=== PATIENT | male | born 1975 | race African-American/Black ===

== ENCOUNTER 2017-02-07 06:43 | Emergency (ER) | payer OTHER ==
--- NOTE | ~2017-02-07 | CT2 ---
[facility] A Service of [facility] [place] RADIOLOGY TEXT RESULTS PATIENT: EL STROUD LOCATION: [facility] : 75 UNIT #: [id number] AGE: [address]: Shari Gaston MD SEX: M ORDER DR: [id number] [facility] [address] [place], [place] [address] [id number] MR#: [id number] Acc #: [id number] NAME: EL STROUD : 1975 SEX: M STUDY DATE/TIME: 02/07/2017 10:09 UNIT: [facility] ROOM: STUDY DESCRIPTION: CT Abd and Pelv W Cont Attending Physician: Shari Gaston M.D. Ordering Physician: Shari Gaston M.D. Primary Care Physician: Primary Care Physician No MEDICAL IMAGING REPORT This report is preliminary unless electronic signature is present EXAM CT of the abdomen and pelvis with contrast INDICATIONS Abdominal pain for 7 hours. Patient has a history of acute pancreatitis and also complains of vomiting. TECHNIQUE Axial CT images were obtained from the dome of the diaphragm through the symphysis pubis following the administration of intravenous contrast material. This CT exam was performed with one or more of the following radiation dose reduction techniques: Automatic exposure control, adjustment of mA and/or kV according to patient size, and iterative reconstruction. FINDINGS Images through the lung bases demonstrate some mild bibasilar atelectasis. Liver and gallbladder appear unremarkable. Spleen and proximal small bowel are within normal limits. Adrenal glands and kidneys also appear normal. There is a small hiatal hernia. Gallbladder is normal in appearance. I do not see any evidence of pancreatitis on these images. No free fluid or adenopathy is seen within the abdomen. Prostate gland and urinary bladder appear normal. The appendix is visualized and is within normal limits. No free fluid or adenopathy is seen within the pelvis. Patient appears to be status post right inguinal hernia repair. There are some shotty inguinal nodes. There is an apparent collection which is seen tracking posterior to the sacrum and coccyx measuring about 9.6 cm in length. Clinical significance is uncertain. I wonder if this could be related to a prior pilonidal cyst. It was not present on the exam from February 2014. I suspect it may reflect a pilonidal cyst. Correlation with [facility] A Service of [facility] RADIOLOGY TEXT RESULTS PATIENT: EL STROUD LOCATION: [facility] : 75 UNIT #: [id number] AGE: [address]: MarilinDecember SEX: M ORDER DR: physical exam findings is suggested. IMPRESSION 1. No definite acute intraabdominal or intrapelvic process is seen to account for the patient's symptomatology. Solid organs appear unremarkable, GI tract appears within normal limits, including the appendix. In particular, I do not see any convincing evidence of pancreatitis. 2. This patient does have an apparent collection which is tracking posterior to the sacrum and coccyx. I question if perhaps this reflects a pilonidal cyst. It was not really present on the prior examination and correlation with physical exam findings in this area is recommended. Dictated by... Talisha Hernandez M.D. THIS IS AN ELECTRONICALLY VERIFIED REPORT Talisha Hernandez M.D. at 02/09/2017 1:21 PM AFF/psc TD: 02/07/2017 17:22 JOB #: [id number] MEDICAL IMAGING REPORT Page 1 of 1 COPY
[~2017-02-07 06:43] MED LIST: ADVIL200 M3 PO; FAMOTIDINE PO; FAMOTIDINE20 MG PO; FLEXERIL10 M1 PO; LORTAB 10-5001 EACH PO; LORTAB 5/500 TA1 TA1 PO; MEDROL4 MG/DOSE- PO; OMEPRAZOLE40 MG PO; PERCOCET5/325 PO; PHENERGAN PO; PHENERGAN SUPP25 MG PR; PHENERGAN12.5 MG/SU RC; PHENERGAN25 M1 PO; PHENERGAN25 MG PO; PROTONIX PO; ZOFRAN ODT4 MG PO
[2017-02-07 07:33] LABS: BASOPHIL# 0.1 X10e3 (0-0.3); BASOPHIL% 0.6 % (0-2.5); EOSINOPHIL# 0.1 X10e3 (0-0.7); EOSINOPHIL% 0.4 % (0.0-7.0); HEMOGLOBIN 13.5 gm/dL (13.0-16.0); LYMPHOCYTE# 2.2 X10e3 (1.0-3.5); LYMPHOCYTE% 16.8 % (17.0-45.0); MEAN CELL VOLUME 92.9 FL (83-96); MEAN CORPUSCULAR HEMOGLOBIN 30.5 PG (28-34); MEAN CORPUSCULAR HGB CONC 32.9 g/dL (30-36); MEAN PLATELET VOLUME 9.1 FL (6.5-11.5); MONOCYTE# 0.9 X10e3 (0-1.0); MONOCYTE% 7.1 % (3.0-12.0); NEUTROPHIL# 9.7 X10e3 (1.5-7.1); NEUTROPHIL% 75.1 % (40-75); PLATELET COUNT 221 X10e3 (140-420); RED BLOOD COUNT 4.41 X10e (3.90-5.60); RED CELL DISTRIBUTION WIDTH 14.6 % (11.0-15.5); WHITE BLOOD COUNT 12.9 X10e3 (4.0-10.5)
[2017-02-07 07:36] LABS: DIFF IND NO
[2017-02-07 08:08] LABS: ALBUMIN SERUM 4.2 g/dL (3.5-5.0); ALKALINE PHOSPHATASE 93 U/L (32-92); ALT (SGPT) 29 U/L (10-40); AMYLASE 49 U/L (0-46); AST (SGOT) 26 U/L (10-42); BILIRUBIN, DIRECT 0.1 mg/dL (0.0-0.2); BILIRUBIN,INDIRECT 0.5 mg/dL (0.0-0.9); BILIRUBIN,TOTAL 0.6 mg/dL (0.2-2.0); BLOOD UREA NITROGEN 18 mg/dL (9-23); BUN/CREATININE RATIO 16.36; CALCIUM SERUM 8.9 mg/dL (8.4-10.2); CARBON DIOXIDE 21 mmol/L (22-31); CHLORIDE 102 mmol/L (100-111); CREATININE SERUM 1.1 mg/dL (0.6-1.4); GLOM FILT RATE Estimated 96.2 mL/min (>60); GLUCOSE FASTING 181 mg/dL (70-110); LIPASE 52 U/L (22-51); SODIUM 136 mmol/L (135-145)
[2017-02-07 08:23] LABS: ALCOHOL BLOOD <5 mg/dL (0)
[2017-02-07 09:38] LABS: URINE SOURCE CLEAN CATCH
[2017-02-07 09:50] LABS: URINE APPEARANCE CLEAR; URINE BILIRUBIN NEG (NEG); URINE BLOOD NEG (NEG); URINE COLOR YELLOW; URINE GLUCOSE NEG (NEG); URINE KETONE 3+ (NEG); URINE LEUKOCYTE ESTERASE NEG (NEG); URINE NITRATE NEG (NEG); URINE PH 8.5 (5-8); URINE PROTEIN 1+ (NEG); URINE SPECIFIC GRAVITY 1.032 (1.003-1.035)
[2017-02-07 09:52] LABS: URBCS1 AUWI 0-2 /[HPF] (0-2); URINE BACTERIA AUWI NEG (NEGATIVE); URINE SQUAMOUS EPITHELIAL CELL FEW /[HPF]; UWBCS1 AUWI 0-2 (0-5)
[2017-02-07 10:02] LABS: AMPHETAMINE NEG (NEG); BARBITURATES NEG (NEG); BENZODIAZEPINES NEG (NEG); COCAINE NEG (NEG); MARIJUANA POS (NEG); OPIATES POS (NEG); TRICYCLIC ANTIDEPRESSANTS NEG (NEG); U METHADONE NEG (NEG)
[2017-02-07 10:08] LABS: CULTURE INDICATED? NO; URINE AMORPHOUS SEDIMENT AMORP PHOSPHATES; URINE MUCUS PRESENT
== END 2017-02-07 12:20 | disposition home or self-care (01) ==
LOC: CED 06:43
PROVIDERS: Student in an Organized Health Care Education/Training Program
DX: K85.90 Acute pancreatitis without necrosis or infection, unspecified (principal); K86.1 Other chronic pancreatitis; F12.10 Cannabis abuse, uncomplicated
CPT/HCPCS: 36415; 74177; 80048; 80076; 80307; 81003; 82150; 83690; 85025; 96361; 96374; 96375; 99284; C9113; G0480; J2270; J2405; Q9967

== ENCOUNTER 2017-05-13 10:02 | Emergency (ER) | payer OTHER ==
[2017-05-13 11:18] LABS: BASOPHIL# 0.1 X10e3 (0-0.3); BASOPHIL% 0.6 % (0-2.5); EOSINOPHIL% 0.4 % (0.0-7.0); HEMATOCRIT 42.4 % (38.0-50.0); HEMOGLOBIN 14.5 gm/dL (13.0-16.0); LYMPHOCYTE# 2.9 X10e3 (1.0-3.5); LYMPHOCYTE% 28.5 % (17.0-45.0); MEAN CELL VOLUME 91.1 FL (83-96); MEAN CORPUSCULAR HEMOGLOBIN 31.3 PG (28-34); MEAN CORPUSCULAR HGB CONC 34.3 g/dL (30-36); MEAN PLATELET VOLUME 8.9 FL (6.5-11.5); MONOCYTE# 0.6 X10e3 (0-1.0); MONOCYTE% 5.7 % (3.0-12.0); NEUTROPHIL# 6.5 X10e3 (1.5-7.1); NEUTROPHIL% 64.8 % (40-75); PLATELET COUNT 231 X10e3 (140-420); RED BLOOD COUNT 4.65 X10e (3.90-5.60); RED CELL DISTRIBUTION WIDTH 14.8 % (11.0-15.5)
[2017-05-13 11:20] LABS: DIFF IND NO
[2017-05-13 11:42] LABS: ALBUMIN SERUM 4.5 g/dL (3.5-5.0); BILIRUBIN, DIRECT 0.1 mg/dL (0.0-0.2); BILIRUBIN,INDIRECT 0.4 mg/dL (0.0-0.9); BILIRUBIN,TOTAL 0.5 mg/dL (0.2-2.0); CALCIUM SERUM 9.2 mg/dL (8.4-10.2); CREATININE SERUM 1.3 mg/dL (0.6-1.4); POTASSIUM 3.4 mmol/L (3.5-5.1); PROTEIN TOTAL SERUM 7.9 g/dL (6.0-8.3)
[2017-05-13 11:52] LABS: URINE SOURCE CLEAN CATCH
[2017-05-13 11:57] LABS: URINE APPEARANCE CLEAR; URINE BILIRUBIN NEG (NEG); URINE BLOOD NEG (NEG); URINE COLOR YELLOW; URINE GLUCOSE NEG (NEG); URINE KETONE 1+ (NEG); URINE LEUKOCYTE ESTERASE NEG (NEG); URINE NITRATE NEG (NEG); URINE PROTEIN 1+ (NEG); URINE UROBILINOGEN 0.2 MG/DL (NEG)
[2017-05-13 11:59] LABS: URBCS1 AUWI 0-2 /[HPF] (0-2); URINE BACTERIA AUWI NEG (NEGATIVE); URINE SQUAMOUS EPITHELIAL CELL FEW /[HPF]; UWBCS1 AUWI 0-2 (0-5)
[2017-05-13 12:44] LABS: CULTURE INDICATED? NO
== END 2017-05-13 14:10 | disposition home or self-care (01) ==
LOC: CED 10:02
PROVIDERS: Nurse Practitioner
DX: R10.84 Generalized abdominal pain (principal); R11.2 Nausea with vomiting, unspecified; R19.7 Diarrhea, unspecified; R03.0 Elevated blood-pressure reading, without diagnosis of hypertension; R06.02 Shortness of breath; K21.9 Gastro-esophageal reflux disease without esophagitis; J45.909 Unspecified asthma, uncomplicated
CPT/HCPCS: 36415; 80048; 80076; 81003; 82150; 83690; 85025; 96361; 96374; 96375; 99284; J2270; J2405; J2765